=== PATIENT | female | born 1970 | race Caucasian/White ===

== ENCOUNTER 2017-04-18 14:00 | Emergency (ER) | payer OTHER ==
[2017-04-18 14:06] VITALS: BP 122/65; PULSE 79; TEMP 98; BMI 24.1
--- NOTE | 2017-04-18 14:38 | PDOC ---
History of Present Illness - General History Source: Patient Exam Limitations: No Limitations <Ronnie Spencer - Last Filed: 04/18/17 14:57> - General History Source: Patient Exam Limitations: No Limitations - History of Present Illness Initial Comments: 04/18/17 15:52 The patient is a 47 year old female, with no significant past medical history, who presents to the emergency department with left arm parasthesias since earlier this afternoon. The patient reports she woke up feeling fine this morning, but on her way back from her lunch break she began to develop tingling while on the phone with her while her hand was held in extension. Patient reports the symptoms radiated down her left arm. Patient reports her symptoms are nonexertional. Pt notes she feels somewhat similar ssenation when she makes a hard fist. She denies any associated left arm trauma, heavy lifting , left arm pain, changes in vision or speech, headache, neck pain, dizziness. Last night patient reports experiencing mild substernal chest discomfort(which she develops intermittently and is non exertional, lasting for seconds at at time), nonradiating in nature, but denies any shortness of breath, diaphoresis, or palpitations. She denies any fever or chills. 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 She denies any recent travel or sick contacts. Allergies: NKDA Past Surgical History: None reported. Social History: Non smoker. No ETOH or recreational drug use. <Lainey Araujo - Last Filed: 04/18/17 15:53> - General Chief Complaint: Head/Neck problem Stated Complaint: LEFT ARM NUMBNESS Time Seen by Provider: 04/18/17 14:05 Past History - Past Medical History COPD: No Other medical history: DENIES - Suicide/Smoking/Psychosocial Hx Smoking History: Never smoked Hx Alcohol Use: No Drug/Substance Use Hx: No Substance Use Type: None <Ronnie Spencer - Last Filed: 04/18/17 14:57> <Lainey Araujo - Last Filed: 04/18/17 15:53> - Past Medical History Allergies/Adverse Reactions: Allergies Allergy/AdvReac Type Severity Reaction Status Date / Time No Known Allergies Allergy Verified 04/18/17 14:01 Home Medications: Ambulatory Orders NK [No Known Home Medication] 04/18/17 Review of Systems - Review of Systems Able to Perform ROS?: Yes Comments:: 04/18/17 15:52 CONSTITUTIONAL: No reported: Fever, Chills, Diaphoresis, Generalized Weakness, Malaise, Loss of Appetite HEENT: No reported: Rhinorrhea, Nasal Congestion, Throat Pain, Throat Swelling, Difficulty Swallowing, Mouth Swelling, Ear Pain, Eye Pain, Visual Changes CARDIOVASCULAR: No reported: Syncope, Palpitations, Irregular Heart Rate, Lightheadedness, Peripheral Edema RESPIRATORY: No reported: Cough, Shortness of Breath, SOB with Exertion, Orthopnea, Wheezing , Stridor, Hemoptysis GASTROINTESTINAL: No reported: Abdominal pain, Abdominal Distension, Nausea, Vomiting, Diarrhea, Constipation, Melena, Hematochezia GENITOURINARY: No reported: Dysuria, Frequency, Urgency, Hesitancy, Flank Pain, Genital Pain MUSCULOSKELETAL: No reported: Myalgia, Arthralgia, Joint Swelling, Back pain, Neck Pain SKIN: No reported: Rash, Itching, Pallor ENDOCRINE: No reported: Unexplained Weight Gain, Unexplained Weight Loss, Heat Intolerance , Cold Intolerance NEUROLOGIC: Present: Left arm parathesias No reported: Headache, Vertigo, Lightheadedness, Unsteady Gait, Seizure, Mental Status Changes, Incontinence <Araujo,Giomilsy - Last Filed: 04/18/17 15:53> *Physical Exam - Vital Signs Last Vital Signs Temp Pulse Resp BP Pulse Ox 98 F 79 15 122/65 100 04/18/17 14:01 04/18/17 14:01 04/18/17 14:01 04/18/17 14:01 04/18/17 14:01 <Ronnie Spencer - Last Filed: 04/18/17 14:57> - Vital Signs Last Vital Signs Temp Pulse Resp BP Pulse Ox 98 F 79 15 122/65 100 04/18/17 14:01 04/18/17 14:01 04/18/17 14:01 04/18/17 14:01 04/18/17 14:01 - Physical Exam Comments: 04/18/17 15:53 GENERAL: The patient is awake, alert, and fully oriented, Nontoxic - in no acute distress. HEAD: Normocephalic, atraumatic. EYES: extraocular movements intact, sclera anicteric, conjunctiva clear. ENT: Normal voice, Moist mucous membranes. NECK: Normal range of motion, supple, no posterior cervical or thoracic tenderness, No symptoms on axial loading of neck. LUNGS: Breath sounds equal, clear to auscultation bilaterally. No wheezes, no rhonchi, no rales. HEART: Regular rate and rhythm, without murmur, rub or gallop. EXTREMITIES: Normal range of motion, negative phalens test NEUROLOGICAL: No facial assymetry, Normal speech, moving all 4 extremities spontaneously and symmetrically, sensation intact and symmetric bilaterally. , strength symmetric b/l PSYCH: Normal mood, normal affect. SKIN: Warm, Dry, normal turgor, <Lainey Araujo - Last Filed: 04/18/17 15:53> Medical Decision Making - Medical Decision Making 04/18/17 14:53 47y F no pmhx presents with complaint of L arm tinging. Pt states she was driving when she felt parasthesia on her L arm that lasted for approximately 2 hrs that then resolved. The pt states her arm was held up, and sypmtoms resolved by the time she got to the hospital. Denies any weakness, neck pain, headache. Curretnly asypmtmatic. exam unremarkable vitals normal suspect possible radiculpathy due to the position of her arm no risk factors for CVA (no family history, personal risk factors) ekg shows NSR will dc her with pmd fu return precautions were discussed I discussed the physical exam findings, ancillary test results and final diagnoses with the patient. I answered all of the patient's questions. The patient was satisfied with the care received and felt comfortable with the discharge plan and treatment plan. The patient will call their primary care physician within 24 hours to arrange follow-up and will return to the Emergency Department with any new, persistent or worsening symptoms. A portion of this note was documented by scribe services under my direction. I have reviewed the details of the note, within reason, and agree with the documentation with the following case summary and management plan written by me <Ronnie Spencer - Last Filed: 04/18/17 14:57> *DC/Admit/Observation/Transfer - Discharge Dispostion Admit: No <Ronnie Spencer - Last Filed: 04/18/17 14:57> - Attestations Scribe Attestion: 04/18/17 15:53 Documentation prepared by Lainey Araujo, acting as medical assistant dermatology for Ronnie Spencer MD. <Lainey Araujo - Last Filed: 04/18/17 15:53> Diagnosis at time of Disposition: Radiculopathy of arm - Discharge Dispostion Disposition: HOME Condition at time of disposition: Improved - Referrals Referrals: Toney Berman MD [Staff Physician] - - Patient Instructions Printed Discharge Instructions: DI for Cervical Radiculopathy Additional Instructions: Return to the emergency department immediately with ANY new, persistent or worsening symptoms including any weakness, further numbness/tingling, speech changes, vision changes, or other concerns. You MUST call and follow up with your doctor in 3-4 days for further evaluation of your symptoms. Results were discussed with you. Please make sure your doctor reviews the results of your emergency evaluation. Print Language: ITALIAN
--- NOTE | 2017-04-19 08:02 | EKG ---
Test Reason : Blood Pressure : / mmHG Vent. Rate : 069 BPM Atrial Rate : 069 BPM P-R Int : 148 ms QRS Dur : 082 ms QT Int : 382 ms P-R-T Axes : 065 049 056 degrees QTc Int : 409 ms NORMAL SINUS RHYTHM WITH SINUS ARRHYTHMIA NORMAL ECG NO PREVIOUS ECGS AVAILABLE Confirmed by MARY JANE FRANCOIS MD ([id number]) on 04/19/2017 8:02:22 AM Referred By: RD Confirmed By:MARY JANE FRANCOIS MD
== END 2017-04-18 15:10 | disposition home or self-care (01) ==
LOC: FER 14:00
DX: M54.10 Radiculopathy, site unspecified (principal)
CPT/HCPCS: 93005; 99282-25